=== PATIENT | female | born 1975 | race Two or more races ===

== ENCOUNTER 2020-03-30 11:24 | Emergency (ER) | payer OTHER ==
[~2020-03-30] VITALS: Ht 170.2 cm; Wt 106.6 kg
[2020-03-30] MEDS ORDERED: METFORMIN HCL500 M3 (11:43)
== END 2020-03-30 14:33 | disposition home or self-care (01) ==
LOC: ER 11:24
DX: H66.91 Otitis media, unspecified, right ear (principal); Z03.818 Encounter for observation for suspected exposure to other biological agents ruled out

== ENCOUNTER → 2020-08-20 | Outpatient (CLI) | payer OTHER ==
[~2020-08-20] MED LIST: METFORMIN HCL500 M3
== END | disposition home or self-care (01) ==
LOC: OFIC 805 15:15
PROVIDERS: ATTEND Otolaryngology Otology & Neurotology
DX: H66.91 Otitis media, unspecified, right ear (principal); H71.91 Unspecified cholesteatoma, right ear; H91.8X1 Other specified hearing loss, right ear

== ENCOUNTER 2020-10-09 15:19 | Outpatient (CLI) | payer OTHER | END 2020-10-09 15:28 | disposition home or self-care (01) | LOC: TOM 15:19 | PROVIDERS: ATTEND Otolaryngology Otology & Neurotology | DX: H60.41 Cholesteatoma of right external ear (principal); H90.11 Conductive hearing loss, unilateral, right ear, with unrestricted hearing on the contralateral side ==

== ENCOUNTER → 2020-10-12 07:00 | Outpatient (CLI) | payer OTHER ==
[~2020-10-12 07:00] MED LIST changes: +AMOXICILLIN500 MG PO; +GLIMEPIRIDE4 M1 PO; +GLIPIZIDE XL10 MG PO; +METFORMIN HCL850 M1 PO; +PIROXICAM20 MG PO
== END | disposition home or self-care (01) ==
LOC: LAB 07:00 → ADM 08:45 → CIR.AMB 10-19 08:45 → EDSTATUS 10-19 08:45
PROVIDERS: ATTEND Otolaryngology Otology & Neurotology
DX: Z20.828 Contact with and (suspected) exposure to other viral communicable diseases (principal); H71.11 Cholesteatoma of tympanum, right ear; H90.71 Mixed conductive and sensorineural hearing loss, unilateral, right ear, with unrestricted hearing on the contralateral side; Z03.818 Encounter for observation for suspected exposure to other biological agents ruled out; I10 Essential (primary) hypertension

== ENCOUNTER 2020-11-16 05:25 | Day surgery (SDC) | payer OTHER ==
[~2020-11-16 05:25] MED LIST changes: -AMOXICILLIN500 MG PO
[2020-11-16] MEDS ORDERED: AMOXICILLIN500 MG PO (11:42)
== END 2020-11-16 14:28 | disposition home or self-care (01) ==
LOC: CIR.AMB 05:25
PROVIDERS: ATTEND Otolaryngology Otology & Neurotology
DX: H71.11 Cholesteatoma of tympanum, right ear (principal); H90.71 Mixed conductive and sensorineural hearing loss, unilateral, right ear, with unrestricted hearing on the contralateral side; Z20.822 Contact with and (suspected) exposure to COVID-19

== ENCOUNTER 2020-11-21 10:13 | Outpatient (CLI) | payer OTHER ==
[~2020-11-21 10:13] MED LIST changes: +AMOXICILLIN500 MG PO
== END 2020-11-21 10:48 | disposition home or self-care (01) ==
LOC: OFIC 805 10:13
PROVIDERS: ATTEND Otolaryngology Otology & Neurotology
DX: H66.91 Otitis media, unspecified, right ear (principal); H71.91 Unspecified cholesteatoma, right ear; H90.11 Conductive hearing loss, unilateral, right ear, with unrestricted hearing on the contralateral side

== ENCOUNTER 2020-12-12 09:09 | Outpatient (CLI) | payer OTHER | END 2020-12-12 09:49 | disposition home or self-care (01) | LOC: OFIC 805 09:09 | PROVIDERS: ATTEND Otolaryngology Otology & Neurotology | DX: H66.91 Otitis media, unspecified, right ear (principal); H71.91 Unspecified cholesteatoma, right ear; H91.8X1 Other specified hearing loss, right ear ==